=== PATIENT | female | born 1975 | race Hispanic/Latino ===

== ENCOUNTER 2025-01-06 12:51 | Inpatient (IN) | payer SELFPAY ==
[~2025-01-06] VITALS: Ht 162.6 cm; Wt 108.0 kg
[2025-01-06] VITALS (7 sets, daily range): BP systolic 112–122; BP diastolic 61–68; PULSE 89–96; RESP 20–30; TEMP 97–98.3; O2SAT 94–99
[2025-01-06] MEDS: DEXAMETHASONE SOD PHOS 10 MG/1 ML VIAL IV ONE (13:42)
[2025-01-06] MEDS: ALBUTEROL/IPRATROPIUM 3 ML NEB NEB ONE (13:57)
[2025-01-06 14:13] LABS: BASOPHILS % 0.2 % (0.0-1.0); EOSINOPHILS % 1.2 % (0.0-6.0); LYMPHOCYTES % 9.5 % (18.0-39.1); MONOCYTES % 10.2 % (4.4-11.3); NEUTROPHILS % 78.2 % (38.7-80.0); RED CELL DISTRIBUTION WIDTH 16.0 % (11.7-14.4)
[2025-01-06 14:35] LABS: EST GLOMERULAR FILTRATION RATE 10.0 ML/MIN (>=60)
[2025-01-06 14:51] LABS: CORONAVIRUS COVID-19 AG NEGATIVE (NEGATIVE)
[2025-01-06 15:02] LABS: INR 1.57
[2025-01-06] MEDS ORDERED: DEXTROSE 50% SYRINGE 50 ML IV PRN (16:15)
[2025-01-06] MEDS ORDERED: SIMETHICONE 80 MG CHEW PO PRN (16:15)
[2025-01-06] MEDS ORDERED: DIPHENHYDRAMINE HCL 25 MG CAP PO PRN (16:15)
[2025-01-06] MEDS ORDERED: LIDOCAINE 4% PATCH TP PRN (16:15)
[2025-01-06] MEDS ORDERED: MELATONIN 5 MG TABLET PO PRN (16:15)
[2025-01-06] MEDS ORDERED: HYDRALAZINE HCL 20 MG/ML VIAL IV PRN (16:15)
[2025-01-06] MEDS ORDERED: DOCUSATE SODIUM 100 MG CAP PO PRN (16:15)
[2025-01-06] MEDS ORDERED: ONDANSETRON HCL INJ 2MG/ML 2ML 2 MG/ML VIAL IV PRN (16:15)
[2025-01-06] MEDS: FUROSEMIDE INJ 10 MG/ML 4 ML VIAL IV ONE ×2 (16:29→20:11)
[2025-01-06] MEDS: SODIUM BICARBONATE 650 MG TAB PO SCH (18:24)
[2025-01-06] MEDS: Doxycycline IV 100 MG in SODIUM CHLORIDE 0.9% 100 ML IV SCH (18:24)
[2025-01-06] MEDS: BENZONATATE 100 MG CAP PO PRN (19:10)
[2025-01-06] MEDS: ACETAMINOPHEN 325 MG TAB PO PRN (19:11)
[2025-01-07] VITALS (54 sets, daily range): BP systolic 75–164; BP diastolic 36–81; PULSE 63–100; RESP 15–29; TEMP 96.9–97.9; O2SAT 90–100
[2025-01-07] MEDS ORDERED: GUAIFENESIN/CODEINE 5 ML LIQD PO PRN (02:00)
[2025-01-07 06:39] LABS: BASOPHILS % 0.1 % (0.0-1.0); EOSINOPHILS % 0.0 % (0.0-6.0); LYMPHOCYTES % 6.2 % (18.0-39.1); MONOCYTES % 6.8 % (4.4-11.3); NEUTROPHILS % 85.8 % (38.7-80.0); RED CELL DISTRIBUTION WIDTH 16.2 % (11.7-14.4)
[2025-01-07 07:08] LABS: EST GLOMERULAR FILTRATION RATE 9.0 ML/MIN (>=60)
[2025-01-07 07:37] LABS: % IRON SATURATION 23.0 % (15-50); CHOL/HDL RATIO 9.7 (3.0-3.6); LDL CHOLESTEROL 31.0 MG/DL (60-130); PHOSPHORUS 6.0 MG/DL (2.3-4.7)
[2025-01-07] MEDS ORDERED: LIDOCAINE HCL 1% 30ML-PF VIAL ONE (09:17)
[2025-01-07] MEDS: PANTOPRAZOLE SOD 40 MG TABEC PO SCH (09:48)
[2025-01-07 09:49] LABS: LYMPHOCYTES % (MANUAL) 2 % (19-48); MONOCYTES % (MANUAL) 5 % (3.4-9.0); NEUTROPHILS % (MANUAL) 92 % (40-74); PLATELET ESTIMATE MODERATELY DECREASED; PLATELET MORPHOLOGY COMMENT NORMAL; RBC MORPHOLOGY COMMENT NORMAL; REACTIVE LYMPHOCYTES 1
[2025-01-07] MEDS: ALBUTEROL/IPRATROPIUM 3 ML NEB NEB PRN (12:41)
[2025-01-07] MEDS: FUROSEMIDE INJ 100 MG in SODIUM CHLORIDE 0.9% 90 ML IV SCH (13:59)
[2025-01-07] MEDS: DEXMEDETOMIDINE 400MCG/NS100ML 100 ML IV PRN (14:11)
[2025-01-07] MEDS: SODIUM BICARBONATE 8.4% INJ 50 ML SYR IV ONE (14:11)
[2025-01-07 14:17] LABS: ABG PCO2 16 mmHg (35-45); ABG PH 7.36 (7.35-7.45); ABG PO2 72 mmHg (80-105); ABG TCO2 9
[2025-01-07 14:18] LABS: ABG OXYGEN SATURATION 94.0 % (95-98)
[2025-01-07 14:22] LABS: ABG HCO3 9 mmol/L (22-26)
[2025-01-07 14:23] LABS: ABG BASE EXCESS -17.0 mmol/L (-2 - 3)
[2025-01-07 16:00] LABS: BODY FLUID APPEARANCE SL.CLOUDY; BODY FLUID COLOR YELLOW; BODY FLUID TYPE PLEURAL; WBC,BODY FLUID 1461 cells/uL
[2025-01-07] MEDS: SODIUM BICARBONATE 8.4% VIAL 150 ML in DEXTROSE 5% 1,000 ML IV SCH (16:05)
[2025-01-07] MEDS ORDERED: PROPOFOL IV EMULSION 10MG/ML 100 ML IV PRN (16:30)
[2025-01-07] MEDS ORDERED: FENTANYL 2000MCG/NS 250 250 ML IV PRN (16:30)
[2025-01-07] MEDS: NOREPINEPHRINE 8 MG/D5W 250 ML 250 ML ONE (19:32)
[2025-01-07] MEDS: SODIUM CHLORIDE 0.9% 250ML 250 ML ONE (19:32)
[2025-01-07] MEDS: SODIUM CHLORIDE 0.9% 1000ML 1,000 ML ONE ×2 (19:32→19:33)
[2025-01-07] MEDS: ALBUMIN 5% 250ML 250 ML ONE (19:32)
[2025-01-07] MEDS: HYDROCORTISONE SOD SUCCINATE 100 MG VIAL IV SCH (19:45)
[2025-01-07] MEDS ORDERED: ALBUMIN 25% 12.5GM 0.25 GM/ML BTL IV PRN (19:45)
[2025-01-07] MEDS ORDERED: SODIUM CHLORIDE 0.9% 1000ML 2,000 ML IV PRN (19:45)
[2025-01-07] MEDS ORDERED: MANNITOL 25% 12.5GM/50 ML VIAL IV PRN (19:45)
[2025-01-07] MEDS ORDERED: HEPARIN SOD (PORCINE) 1000 UNIT/ML SDV IV PRN (19:45)
[2025-01-07 20:07] LABS: LYMPHOCYTES,BODY FLUID 14 %; MONO/MACROPHG,BODY FLUID 27 %; NEUTROPHILS,BODY FLUID 28 %; OTHER CELLS,BODY FLUID 31 %; TOTAL CELLS COUNTED (DIFF) 100
[2025-01-07] MEDS: MUPIROCIN 2% OINT 22 GM TUBE TOP SCH (20:27)
[2025-01-07 21:33] LABS: ABG BASE EXCESS -4.0 mmol/L (-2 - 3); ABG HCO3 22 mmol/L (22-26); ABG PCO2 37 mmHg (35-45); ABG PH 7.37 (7.35-7.45); ABG PO2 75 mmHg (80-105); ABG TCO2 23
[2025-01-07 21:34] LABS: ABG OXYGEN SATURATION 94.0 % (95-98)
[2025-01-08] VITALS (112 sets, daily range): BP systolic 77–147; BP diastolic 27–94; PULSE 68–102; RESP 16–22; TEMP 97.2–98.4; O2SAT 41–100
[2025-01-08] MEDS: NOREPINEPHRINE 8 MG/D5W 250 ML 250 ML IV SCH
[2025-01-08 06:45] LABS: BASOPHILS % 0.2 % (0.0-1.0); EOSINOPHILS % 0.0 % (0.0-6.0); LYMPHOCYTES % 6.0 % (18.0-39.1); MONOCYTES % 4.8 % (4.4-11.3); NEUTROPHILS % 88.6 % (38.7-80.0); RED CELL DISTRIBUTION WIDTH 16.2 % (11.7-14.4)
[2025-01-08 07:09] LABS: LACTATE DEHYDROGENASE 400.0 IU/L (125-220)
[2025-01-08 07:13] LABS: EST GLOMERULAR FILTRATION RATE 9.0 ML/MIN (>=60); PHOSPHORUS 5.1 MG/DL (2.3-4.7)
[2025-01-08 07:47] LABS: HIV 1&2 AB SCREEN NON-REACTIVE (NONREACTIVE); HIV- 1 P24 AG SCREEN NON-REACTIVE (NONREACTIVE)
[2025-01-08] MEDS: VASOPRESSIN 60 UNIT in DEXTROSE 5% 50ML 57 ML IV PRN (14:44)
[2025-01-08] MEDS: PROPOFOL IV EMULSION 10MG/ML 100 ML IV PRN (15:05)
[2025-01-08 15:28] LABS: ABG PCO2 34 mmHg (35-45); ABG PH 7.44 (7.35-7.45); ABG PO2 127 mmHg (80-105)
[2025-01-08 15:29] LABS: ABG BASE EXCESS -2.0 mmol/L (-2 - 3); ABG HCO3 23 mmol/L (22-26); ABG OXYGEN SATURATION 99.0 % (95-98); ABG TCO2 24
[2025-01-08] MEDS: FENTANYL 2000MCG/NS 250 250 ML IV PRN (16:57)
[2025-01-08] MEDS: BUMETANIDE INJ 0.25MG/ML 4ML VIAL IV ONE (17:22)
[2025-01-09] VITALS (92 sets, daily range): BP systolic 70–149; BP diastolic 36–72; PULSE 75–94; RESP 17–18; TEMP 97.5–98.1; O2SAT 79–100
[2025-01-09 07:59] LABS: EST GLOMERULAR FILTRATION RATE 11.0 ML/MIN (>=60)
[2025-01-09 08:12] LABS: COMPLEMENT C3 24 mg/dL (82-167)
[2025-01-09] MEDS ORDERED: ALBUMIN 25% 12.5GM 0.25 GM/ML BTL IV PRN (11:15)
[2025-01-09 13:24] LABS: ANTI DNA DS ANTIBODY 4 IU/mL (0-9); COMPLEMENT C4 <2 mg/dL (12-38)
[2025-01-09 15:05] LABS: BASOPHILS % 0.1 % (0.0-1.0); EOSINOPHILS % 0.0 % (0.0-6.0); LYMPHOCYTES % 11.0 % (18.0-39.1); MONOCYTES % 5.7 % (4.4-11.3); NEUTROPHILS % 81.8 % (38.7-80.0); RED CELL DISTRIBUTION WIDTH 15.9 % (11.7-14.4)
[2025-01-09] MEDS: VASOPRESSIN 60 UNIT in DEXTROSE 5% 100ML 57 ML IV PRN (16:02)
[2025-01-09 16:30] LABS: ABG PH 7.57 (7.35-7.45)
[2025-01-09 16:31] LABS: ABG BASE EXCESS 10.0 mmol/L (-2 - 3); ABG HCO3 32 mmol/L (22-26); ABG OXYGEN SATURATION 99.0 % (95-98); ABG PCO2 34 mmHg (35-45); ABG PO2 110 mmHg (80-105); ABG TCO2 33
[2025-01-09 17:16] LABS: BAND NEUTROPHILS % (MANUAL) 5 %; LYMPHOCYTES % (MANUAL) 1 % (19-48); MONOCYTES % (MANUAL) 5 % (3.4-9.0); NEUTROPHILS % (MANUAL) 89 % (40-74); NUCLEATED RED BLOOD CELLS 1
[2025-01-09 17:17] LABS: PLATELET ESTIMATE MODERATELY DECREASED; PLATELET MORPHOLOGY COMMENT NORMAL
[2025-01-11 05:14] LABS: HEPATITIS B CORE AB TOTAL Negative; HEPATITIS B SURFACE AB QUANT <3.5; HEPATITIS B SURFACE AG (P) Negative
[2025-01-11 07:56] LABS: GLUCOSE,BODY FLUID 161.0 mg/dL; TOTAL PROTEIN,BODY FLUID 2.9 g/dL
[2025-01-11 11:28] LABS: HAPTOGLOBIN 59 mg/dL (42-296)
[2025-01-12 12:11] LABS: cANCA TITER <1:20 titer (Neg:<1:20)
[2025-01-12 12:24] LABS: ATYPICAL pANCA TITER <1:20 titer (Neg:<1:20); pANCA TITER <1:20 titer (Neg:<1:20)
[2025-01-12 21:19] LABS: FOLATE (REF LAB) <2.0 ng/mL (>3.0)
[2025-01-13 14:05] LABS: GLOBULIN TOTAL 4.5; SPE ALPHA 1 GLOBULIN 0.2; SPE ALPHA 2 GLOBULIN 0.4; SPE GAMMA GLOBULIN 3.0; SPE TOTAL PROTEIN 6.9
[2025-01-13 14:06] LABS: A/G RATIO 0.5; KAPPA LIGHT CHAINS 483.0; KAPPA/LAMBDA RATIO 1.24; LAMBDA LIGHT CHAINS 389.7
[2025-01-13 14:08] LABS: HEPATITIS A ANTIBODY IGM (P) Negative; HEPATITIS B CORE IGM (P) Negative; HEPATITIS B SURFACE AG (P) Negative
[2025-01-15 09:08] LABS: SPECKLED PATTERN >1:1280
== END 2025-01-09 22:50 | disposition other institution (70) | DRG 853 ==
LOC: ER 13:31 → ERHOLD 15:23 → MED/SURG2 16:48 → ICU 01-07 12:32
PROVIDERS: ADMIT Internal Medicine; ATTEND Internal Medicine
PROC: 3E0333Z Introduction of Anti-inflammatory into Peripheral Vein, Percutaneous Approach (ICD-10-PCS; 2025-01-06)
PROC: 5A1D70Z Performance of Urinary Filtration, Intermittent, Less than 6 Hours Per Day (ICD-10-PCS; 2025-01-06)
PROC: 07B63ZX Excision of Left Axillary Lymphatic, Percutaneous Approach, Diagnostic (ICD-10-PCS; principal; 2025-01-07)
PROC: 0BH17EZ Insertion of Endotracheal Airway into Trachea, Via Natural or Artificial Opening (ICD-10-PCS; 2025-01-07)
PROC: 5A1945Z Respiratory Ventilation, 24-96 Consecutive Hours (ICD-10-PCS; 2025-01-07)
PROC: 03HY32Z Insertion of Monitoring Device into Upper Artery, Percutaneous Approach (ICD-10-PCS; 2025-01-07)
PROC: 02HV33Z Insertion of Infusion Device into Superior Vena Cava, Percutaneous Approach (ICD-10-PCS; 2025-01-07)
PROC: 0W993ZZ Drainage of Right Pleural Cavity, Percutaneous Approach (ICD-10-PCS; 2025-01-07)
PROC: 4A133R1 Monitoring of Arterial Saturation, Peripheral, Percutaneous Approach (ICD-10-PCS; 2025-01-07)
DX: A41.9 Sepsis, unspecified organism (principal); J18.9 Pneumonia, unspecified organism; J96.01 Acute respiratory failure with hypoxia; N17.0 Acute kidney failure with tubular necrosis; E87.20 Acidosis, unspecified; J90 Pleural effusion, not elsewhere classified; Z68.41 Body mass index [BMI] 40.0-44.9, adult; E66.01 Morbid (severe) obesity due to excess calories; D69.6 Thrombocytopenia, unspecified; D53.9 Nutritional anemia, unspecified; R59.1 Generalized enlarged lymph nodes; D75.9 Disease of blood and blood-forming organs, unspecified; D63.1 Anemia in chronic kidney disease; N18.9 Chronic kidney disease, unspecified; Z11.52 Encounter for screening for COVID-19
CPT/HCPCS: 32555; 36415; 36600; 38505; 71045; 71046; 71250; 74018; 74470; 76705; 76770; 76942; 80048; 80053; 80061; 82550; 82607; 82728; 82746; 82805; 82945; 82948; 83010; 83036; 83520; 83540; 83605; 83615; 83735; 83880; 84100; 84157; 84165; 84443; 84466; 84484; 84702; 85025; 85045; 85379; 85610; 86021; 86039; 86160; 86225; 86704; 86706; 86850; 86900; 87040; 87070; 87071; 87205; 87340; 87390; 88184; 88304; 88305; 89051; 90962; 93306; 94002; 94003; 94640; 94799; 99284; C1729; C1752; G0433; G0435; J0696; J1100; J1644; J1720; J1938; J1940; J2003; J2150; J2185; J2470; J7030; J7050; J7070